=== PATIENT | male | born 1955 | race Caucasian/White ===

== ENCOUNTER 2020-03-26 14:04 | Outpatient (REF) | payer MEDICARE, OTHER, SELFPAY | END 2020-03-26 14:05 | disposition home or self-care (01) | LOC: HO.BBR 14:04 | PROVIDERS: Visit Provider Internal Medicine | DX: E83.110 Hereditary hemochromatosis (principal) | CPT/HCPCS: 99195 ==

== ENCOUNTER 2020-07-26 13:03 | Outpatient (REF) | payer OTHER, SELFPAY | END 2020-07-26 13:04 | disposition home or self-care (01) | LOC: HO.BBR 13:03 | PROVIDERS: Visit Provider Internal Medicine | DX: Z13.89 Encounter for screening for other disorder (principal) ==

== ENCOUNTER 2020-10-17 09:00 | Outpatient (REF) | payer MEDICARE, OTHER, SELFPAY | END 2020-10-17 09:01 | disposition home or self-care (01) | LOC: HO.BBR 09:00 | PROVIDERS: Visit Provider Internal Medicine | DX: Z13.89 Encounter for screening for other disorder (principal) ==

== ENCOUNTER 2020-12-05 08:42 | Outpatient (REF) | payer MEDICARE, OTHER, SELFPAY | END 2020-12-05 08:43 | disposition home or self-care (01) | LOC: HO.BBR 08:42 | PROVIDERS: Visit Provider Internal Medicine | DX: Z13.89 Encounter for screening for other disorder (principal) ==

== ENCOUNTER 2021-02-21 12:00 | Outpatient (REF) | payer MEDICARE, OTHER, SELFPAY | END 2021-02-21 12:01 | disposition home or self-care (01) | LOC: HO.BBR 12:00 | PROVIDERS: PCP Internal Medicine; Visit Provider Internal Medicine | DX: Z13.89 Encounter for screening for other disorder (principal) ==

== ENCOUNTER 2021-04-24 10:11 | Outpatient (REF) | payer MEDICARE, OTHER, SELFPAY | END 2021-04-24 10:12 | disposition home or self-care (01) | LOC: HO.BBR 10:11 | PROVIDERS: PCP Internal Medicine; Visit Provider Internal Medicine | DX: Z13.89 Encounter for screening for other disorder (principal) ==

== ENCOUNTER 2021-07-31 09:59 | Outpatient (REF) | payer MEDICARE, OTHER, SELFPAY | END 2021-07-31 10:00 | disposition home or self-care (01) | LOC: HO.BBR 09:59 | PROVIDERS: Visit Provider Internal Medicine | DX: Z13.89 Encounter for screening for other disorder (principal) ==

== ENCOUNTER 2021-11-03 07:54 | Outpatient (REF) | payer MEDICARE, OTHER, SELFPAY | END 2021-11-03 07:55 | disposition home or self-care (01) | LOC: HO.BBR 07:54 | PROVIDERS: Visit Provider Internal Medicine Gastroenterology | DX: Z13.89 Encounter for screening for other disorder (principal) ==

== ENCOUNTER 2022-08-11 09:00 | Outpatient (REF) | payer MEDICARE, OTHER, SELFPAY | END 2022-08-11 09:01 | disposition home or self-care (01) | LOC: HO.BBR 09:00 | PROVIDERS: Visit Provider Internal Medicine Gastroenterology | DX: Z13.89 Encounter for screening for other disorder (principal) ==

== ENCOUNTER 2023-02-11 07:48 | Outpatient (REF) | payer MEDICARE, OTHER, SELFPAY | END 2023-02-11 07:49 | disposition home or self-care (01) | LOC: HO.BBR 07:48 | PROVIDERS: PCP Nurse Practitioner Primary Care; Visit Provider Internal Medicine Gastroenterology | DX: Z13.89 Encounter for screening for other disorder (principal) ==